=== PATIENT | female | born 1945 | race African-American/Black ===

== ENCOUNTER 2016-11-24 22:15 | Emergency (ER) | payer MEDICARE, MEDICAID ==
[~2016-11-24] VITALS: Ht 157.5 cm; Wt 76.0 kg
[~2016-11-24 22:15] MED LIST: AMLO10TA80 PO; BENA40TA3 PO; BRIM5DRO OP; DORZ10DR9 OP; LORA10TA7 PO; METF-516 PO; METO-411 PO; RANI300C8 PO; SIMV40TA5 PO; TRIA1TAB94 PO; XALAO EACHEYE
[2016-11-25] MEDS ORDERED: BACITRACIN ZINC OINT UDPKT TOP ONE (02:00)
[2016-11-25 04:38] VITALS: BP 115/68
== END 2016-11-25 04:38 | disposition home or self-care (01) ==
LOC: ER 22:15
DX: B35.3 Tinea pedis (principal); E11.9 Type 2 diabetes mellitus without complications; I10 Essential (primary) hypertension; E78.00 Pure hypercholesterolemia, unspecified; Z88.2 Allergy status to sulfonamides
CPT/HCPCS: 10060; 99283

== ENCOUNTER 2017-08-03 22:46 | Emergency (ER) | payer MEDICARE, MEDICAID ==
[~2017-08-03] VITALS: Ht 157.5 cm; Wt 77.0 kg
[2017-08-04 02:13] VITALS: BP 127/63
== END 2017-08-04 02:38 | disposition home or self-care (01) ==
LOC: ER 22:46
DX: B35.3 Tinea pedis (principal); I10 Essential (primary) hypertension; H40.9 Unspecified glaucoma; E78.00 Pure hypercholesterolemia, unspecified; J45.909 Unspecified asthma, uncomplicated; E11.9 Type 2 diabetes mellitus without complications; Z88.2 Allergy status to sulfonamides; Z79.84 Long term (current) use of oral hypoglycemic drugs
CPT/HCPCS: 99282

== ENCOUNTER 2018-06-28 23:03 | Emergency (ER) | payer MEDICARE, MEDICAID ==
[~2018-06-28] VITALS: Ht 157.5 cm; Wt 77.0 kg
[~2018-06-28 23:03] MED LIST changes: -BENA40TA3 PO; +BENA40TA9 PO
[2018-06-29] MEDS ORDERED: IBUPROFEN 600MG TABLET PO ONE (03:15)
[2018-06-29 03:35] VITALS: BP 121/75
== END 2018-06-29 03:36 | disposition home or self-care (01) ==
LOC: ER 23:03
DX: M25.511 Pain in right shoulder (principal); E78.00 Pure hypercholesterolemia, unspecified; M19.90 Unspecified osteoarthritis, unspecified site; W18.2XXA Fall in (into) shower or empty bathtub, initial encounter; Y93.89 Activity, other specified; Y92.9 Unspecified place or not applicable; Z88.2 Allergy status to sulfonamides; Z90.710 Acquired absence of both cervix and uterus
CPT/HCPCS: 73030; 73060; 99283

== ENCOUNTER 2018-11-08 10:38 | Emergency (ER) | payer MEDICARE, MEDICAID ==
[~2018-11-08] VITALS: Ht 162.6 cm; Wt 75.0 kg
[2018-11-08] MEDS ORDERED: TETRACAINE 0.5% OPHTH DROPS 4ML LEFTEYE ONE (11:30)
[2018-11-08] MEDS ORDERED: FLUORESCEIN SODIUM 1MG/STRIP LEFTEYE ONE (11:30)
[2018-11-08 12:42] VITALS: BP 128/78
== END 2018-11-08 12:43 | disposition home or self-care (01) ==
LOC: ER 10:38
DX: B00.52 Herpesviral keratitis (principal); E11.9 Type 2 diabetes mellitus without complications; E78.00 Pure hypercholesterolemia, unspecified; I10 Essential (primary) hypertension; Z90.710 Acquired absence of both cervix and uterus; H40.9 Unspecified glaucoma; Z79.899 Other long term (current) drug therapy; Z88.2 Allergy status to sulfonamides
CPT/HCPCS: 99283

== ENCOUNTER 2019-04-19 14:36 | Emergency (ER) | payer MEDICARE, MEDICAID ==
[~2019-04-19] VITALS: Ht 162.6 cm; Wt 85.0 kg
[~2019-04-19 14:36] MED LIST changes: +SIMV-46 PO; -SIMV40TA5 PO
[2019-04-19 14:58] VITALS: BP 132/89
== END 2019-04-19 18:52 | disposition left against medical advice (07) ==
LOC: ER 14:36
DX: Z53.21 Procedure and treatment not carried out due to patient leaving prior to being seen by health care provider (principal); J45.909 Unspecified asthma, uncomplicated; E11.9 Type 2 diabetes mellitus without complications; E78.00 Pure hypercholesterolemia, unspecified; I10 Essential (primary) hypertension; Z88.2 Allergy status to sulfonamides; Z98.890 Other specified postprocedural states

== ENCOUNTER 2019-09-14 16:06 | Emergency (ER) | payer MEDICARE, MEDICAID ==
[~2019-09-14] VITALS: Ht 157.5 cm; Wt 76.3 kg
[2019-09-14 19:12] VITALS: BP 132/63
== END 2019-09-14 19:12 | disposition home or self-care (01) ==
LOC: ER 16:06
DX: U07.1 COVID-19 (principal); J45.909 Unspecified asthma, uncomplicated; I10 Essential (primary) hypertension; E78.00 Pure hypercholesterolemia, unspecified; Z88.2 Allergy status to sulfonamides; Z90.710 Acquired absence of both cervix and uterus; Z79.899 Other long term (current) drug therapy
CPT/HCPCS: 71045; 99284; C9803; U0003; 99283

== ENCOUNTER 2022-07-22 06:13 | Emergency (ER) | payer MEDICARE, MEDICAID ==
[~2022-07-22] VITALS: Ht 157.5 cm; Wt 73.5 kg
[~2022-07-22 06:13] MED LIST changes: -BENA40TA9 PO; +BENA40TA91 PO; -METF-516 PO; +METF-818 PO
[2022-07-22 10:20] VITALS: BP 136/65
== END 2022-07-22 10:22 | disposition home or self-care (01) ==
LOC: ER 06:13
DX: J06.9 Acute upper respiratory infection, unspecified (principal); E11.9 Type 2 diabetes mellitus without complications; J45.909 Unspecified asthma, uncomplicated; Z20.822 Contact with and (suspected) exposure to COVID-19; Z98.890 Other specified postprocedural states
CPT/HCPCS: 71045; 87426; 87804; 99284; C9803

== ENCOUNTER 2023-10-20 09:35 | Emergency (ER) | payer MEDICARE, MEDICAID ==
[~2023-10-20] VITALS: Ht 157.5 cm; Wt 72.2 kg
[2023-10-20 09:42] VITALS: O2SAT 98
[2023-10-20 10:19] LABS: HEMATOCRIT. 45.3 % (36.0-48.0); HEMOGLOBIN. 14.4 g/dL (12.0-16.0); MEAN CORPUSCULAR HEMOGLOBIN 25.8 pg (28.0-32.0); MEAN CORPUSCULAR HGB CONC 31.8 g/dL (31.0-37.0); MEAN CORPUSCULAR VOLUME 81.3 fL (81.0-99.0); MEAN PLATELET VOLUME 7.6 fl (7.4-10.4); PLATELET 201 x1000/uL (130-400); RED BLOOD CELL COUNT 5.58 mill/uL (4.2-5.4); RED CELL DISTRIBUTION WIDTH 16.3 % (11.6-14.6); WHITE BLOOD COUNT 8.3 x1000/uL (4.5-11.0)
[2023-10-20] MEDS: IBUPROFEN 600MG TABLET PO STA (10:26)
[2023-10-20 10:28] LABS: CARBON DIOXIDE 30 mEq/L (21-32); CHLORIDE 103 mEq/L (98-107); DIFFERENTIAL COMMENT 1; POTASSIUM 3.5 mEq/L (3.5-5.1); SODIUM 139 mEq/L (136-145)
[2023-10-20 10:29] LABS: CALCIUM 9.2 mg/dL (8.7-10.4)
[2023-10-20 10:34] LABS: GLUCOSE 144 mg/dL (70-105); UREA NITROGEN BLOOD 8 mg/dL (9-23)
[2023-10-20 10:50] LABS: CLARITY URINE CLEAR (CLEAR); COLOR URINE YELLOW (YELLOW); GLUCOSE URINE 3+ (NEGATIVE); KETONES URINE TRACE (NEGATIVE); LEUKOCYTE ESTERASE URINE NEGATIVE (NEGATIVE); NITRITE URINE NEGATIVE (NEGATIVE); OCCULT BLOOD URINE 1+ (NEGATIVE); PROTEIN URINE NEGATIVE (NEGATIVE); SPECIFIC GRAVITY URINE 1.032 (1.005-1.030); UROBILINOGEN URINE 0.2 E.U./dL (0.2-1.0)
[2023-10-20 11:17] LABS: ANISOCYTOSIS 1+; PLATELET ESTIMATE NORMAL
[2023-10-20] MEDS ORDERED: IBUP-2029 MT (11:19)
[2023-10-20] MEDS ORDERED: ACET-2708 MT (11:19)
[2023-10-20 11:22] LABS: BACTERIA URINE NONE SEEN; RBC URINE 0-2 /hpf (0-2); SQUAMOUS EPITHELIAL CELL URINE RARE /lpf (RARE/1+); WBC URINE 0-2 /hpf (0-2)
[2023-10-20 11:36] VITALS: BP 107/51; PULSE 76; RESP 18
[2023-10-20 11:39] VITALS: TEMP 100.5
[2023-10-20] MEDS: ACETAMINOPHEN 325MG TABLET PO ONE (11:39)
== END 2023-10-20 11:41 | disposition home or self-care (01) ==
LOC: ER 09:35
DX: J10.1 Influenza due to other identified influenza virus with other respiratory manifestations (principal); J45.909 Unspecified asthma, uncomplicated; Z20.822 Contact with and (suspected) exposure to COVID-19; Z88.2 Allergy status to sulfonamides; Z79.899 Other long term (current) drug therapy; Z98.890 Other specified postprocedural states; Z90.710 Acquired absence of both cervix and uterus
CPT/HCPCS: 36415; 71045; 80048; 81003; 85025; 87426; 87804; 99284

== ENCOUNTER 2025-01-10 15:49 | Emergency (ER) | payer MEDICARE, MEDICAID ==
[~2025-01-10] VITALS: Ht 157.5 cm; Wt 75.0 kg
[~2025-01-10 15:49] MED LIST changes: +ACET-2708 MT; +IBUP-1455 MT
[2025-01-10 16:05] VITALS: O2SAT 98
[2025-01-10] MEDS ORDERED: CEPH500C2 MT (16:40)
[2025-01-10 17:07] VITALS: BP 146/55; PULSE 69; RESP 16; TEMP 36.9; O2SAT 99
== END 2025-01-10 17:09 | disposition home or self-care (01) ==
LOC: ER 15:49
DX: L03.032 Cellulitis of left toe (principal); I10 Essential (primary) hypertension; E11.9 Type 2 diabetes mellitus without complications; J45.909 Unspecified asthma, uncomplicated; Z79.84 Long term (current) use of oral hypoglycemic drugs; Z90.710 Acquired absence of both cervix and uterus; Z79.899 Other long term (current) drug therapy; Z88.2 Allergy status to sulfonamides
CPT/HCPCS: 99283